=== PATIENT | female | born 1985 | race Caucasian/White ===

== ENCOUNTER 2020-05-23 18:20 | Emergency (ER) | payer OTHER ==
--- NOTE | 2020-05-23 20:10 | EDM.PDOC ---
ED HPI GENERAL MEDICAL PROBLEM - General Chief Complaint: Flank Pain Stated Complaint: LEFT FLANK PAIN Time Seen by Provider: 05/23/20 18:36 Source of Information: Reports: Patient History Limitations: Reports: No Limitations - History of Present Illness INITIAL COMMENTS - FREE TEXT/NARRATIVE: Patient is a 34-year-old female presenting to the emergency department with complaints of a 5-day history of left flank pain that occasionally radiates down to her groin area. She denies any dysuria or fever. She has no history of kidney stones. Denies any visible blood in her urine. She has not taken anything for pain and does not want to be given pain medications in the emergency department. Not injured her back in any way that she can remember. Treatments ASSESSMENT EXPERT: Reports: Other (see below) Other Treatments ASSESSMENT EXPERT: tylenol Left Flank Pain Score (Numeric/FACES): 7 - Related Data Allergies Allergy/AdvReac Type Severity Reaction Status Date / Time Penicillins Allergy Severe Swelling Verified 05/23/20 18:31 Home Meds: Home Meds . [No Known Home Meds] 05/23/20 [History] Past Medical History Musculoskeletal History: Reports: Fibromyalgia - Past Surgical History HEENT Surgical History: Reports: Tonsillectomy GI Surgical History: Reports: Cholecystectomy Female Surgical History: Reports: Hysterectomy Other Female Surgeries/Procedures: 1 ovary left Social & Family History - Tobacco Use Tobacco Use Status *Q: Current Every Day Tobacco User Years of Tobacco use: 15 Packs/Tins Daily: 0.5 - Caffeine Use Caffeine Use: Reports: Coffee - Recreational Drug Use Recreational Drug Use: No ED ROS GENERAL - Review of Systems Review Of Systems: See Below Constitutional: Reports: No Symptoms. Denies: Fever, Weakness, Fatigue HEENT: Reports: No Symptoms Respiratory: Reports: No Symptoms Cardiovascular: Reports: No Symptoms Endocrine: Reports: No Symptoms GI/Abdominal: Reports: No Symptoms : Reports: Flank Pain. Denies: Dysuria Musculoskeletal: Reports: Back Pain Skin: Reports: No Symptoms Neurological: Reports: No Symptoms Psychiatric: Reports: No Symptoms Hematologic/Lymphatic: Reports: No Symptoms Immunologic: Reports: No Symptoms ED EXAM,LOWER BACK PAIN/INJURY - Physical Exam Exam: See Below General Appearance: Alert, WD/WN, No Apparent Distress Respiratory/Chest: No Respiratory Distress, Lungs Clear, Normal Breath Sounds, No Accessory Muscle Use, Chest Non-Tender Cardiovascular: Normal Peripheral Pulses, Regular Rate, Rhythm, No Edema, No Gallop, No JVD, No Murmur, No Rub Back Exam: Normal Inspection, Full Range of Motion, Other (Bilateral CVA tenderness with the left being worse than the right) Neurological: Alert, Normal Mood/Affect, Normal Dorsiflexion, CN II-XII Intact, Normal Plantar Flexion, Normal Gait, Normal Reflexes, No Motor/Sensory Deficits, Oriented x 3 Psychiatric: Normal Affect, Normal Mood Skin Exam: Warm, Dry, Intact, Normal Color, No Rash Course - Vital Signs Last Recorded V/S: Last Vital Signs Temp 97.7 F 05/23/20 18:36 Pulse 72 05/23/20 18:36 Resp 20 05/23/20 18:36 BP 138/96 H 05/23/20 18:36 Pulse Ox 100 05/23/20 18:36 - Orders/Labs/Meds Orders: Active Orders 24 hr Category Date Time Status Abdomen Pelvis wo Cont [CT] Stat Exams 05/23/20 18:47 Taken Labs: Laboratory Tests 05/23/20 05/23/20 05/23/20 Range/Units 18:47 18:50 18:50 WBC 8.46 (3.98-10.04) K/mm3 RBC 4.30 (3.98-5.22) M/mm3 Hgb 14.2 (11.2-15.7) gm/dl Hct 41.4 (34.1-44.9) % MCV 96.3 H (79.4-94.8) fl MCH 33.0 H (25.6-32.2) pg MCHC 34.3 (32.2-35.5) g/dl RDW Std Deviation 42.3 (36.4-46.3) fL Plt Count 308 (182-369) K/mm3 MPV 9.6 (9.4-12.3) fl Neut % (Auto) 66.5 (34.0-71.1) % Lymph % (Auto) 27.1 (19.3-51.7) % [place] % (Auto) 5.4 (4.7-12.5) % Eos % (Auto) 0.7 (0.7-5.8) Baso % (Auto) 0.1 (0.1-1.2) % Neut # (Auto) 5.62 (1.56-6.13) K/mm3 Lymph # (Auto) 2.29 (1.18-3.74) K/mm3 [place] # (Auto) 0.46 H (0.24-0.36) K/mm3 Eos # (Auto) 0.06 (0.04-0.36) K/mm3 Baso # (Auto) 0.01 (0.01-0.08) K/mm3 Sodium 136 (136-145) mEq/L Potassium 3.6 (3.5-5.1) mEq/L Chloride 102 (98-107) mEq/L Carbon Dioxide 21 (21-32) mEq/L Anion Gap 16.6 H (5-15) BUN 9 (7-18) mg/dL Creatinine 0.7 (0.55-1.02) mg/dL Est Cr Clr Drug Dosing 95.94 mL/min Estimated GFR (MDRD) > 60 (>60) mL/min BUN/Creatinine Ratio 12.9 L (14-18) Glucose 92 (74-106) mg/dL Calcium 8.9 (8.5-10.1) mg/dL Total Bilirubin 0.4 (0.2-1.0) mg/dL AST 12 L (15-37) U/L ALT 26 (14-59) U/L Alkaline Phosphatase 85 (46-116) U/L C-Reactive Protein 0.6 (<1.0) mg/dL Total Protein 7.6 (6.4-8.2) g/dl Albumin 4.0 (3.4-5.0) g/dl Globulin 3.6 gm/dL Albumin/Globulin Ratio 1.1 (1-2) Urine Color Yellow (Yellow) Urine Appearance Clear (Clear) Urine pH 6.0 (5.0-8.0) Ur Specific [place] > or = 1.030 (1.005-1.030) Urine Protein Trace H (Negative) Urine Glucose (UA) Negative (Negative) Urine Ketones 1+ H (Negative) Urine Occult Blood Negative (Negative) Urine Nitrite Negative (Negative) Urine Bilirubin Negative (Negative) Urine Urobilinogen 1.0 (0.2-1.0) Ur Leukocyte Esterase Negative (Negative) Urine RBC 0-5 (0-5) /hpf Urine WBC 0-5 (0-5) /hpf Ur Squamous Epith Cells 0-5 (0-5) /hpf Urine Bacteria Not seen (FEW) /hpf Urine Mucus Few (FEW) /hpf - Re-Assessments/Exams Free Text/Narrative Re-Assessment/Exam: Patient is a 34-year-old female presenting to the emergency department with complaints of 5-day history of left-sided flank pain. Describes it as waxing and waning in nature. Occasion does radiate to the groin. On exam, she does have bilateral CVA tenderness, however left is worse than the right. She denies any urinary symptoms. I have ordered a CBC, CMP, CRP, urinalysis, and CT scan of the abdomen pelvis. 05/23/20 20:07 Patient's work-up was found to be overall unremarkable. Hematology was normal. Urinalysis showed no blood or infection. CT scan of the abdomen pelvis showed a nonspecific 3.7 cm left ovarian cyst with no surrounding inflammation. No free pelvic fluid. Previous hysterectomy. Normal appendix. Previous cholecystectomy. No renal calculi or hydronephrosis. No acute renal inflammatory changes. Discussed these results with patient. Her low back pain is likely is musculoskeletal in nature. She does not want any pain medications and denied the need for muscle relaxers. Recommend Tylenol and ibuprofen as well as heat to her low back. Discharge instructions as documented. Departure - Departure Time of Disposition: 20:08 Disposition: Home, Self-Care 01 Condition: Good Clinical Impression: Low back pain Qualifiers: Chronicity: acute Back pain laterality: bilateral Sciatica presence: without sciatica Qualified Code(s): M54.5 - Low back pain - Discharge Information *PRESCRIPTION DRUG MONITORING PROGRAM REVIEWED*: No *COPY OF PRESCRIPTION DRUG MONITORING REPORT IN PATIENT LUIS: No Instructions: Acute Back Pain, Adult Referrals: PCP,None [Primary Care Provider] - Additional Instructions: You were seen in the emergency department today for a 5-day history of left- sided back pain with some tenderness of the right side your back on examination as well. Work-up included blood work, urinalysis, and a CT scan. Results your blood work and urinalysis were negative. There was no blood or signs of infection in your urine. CT scan showed a 3.7 cm left ovarian cyst with no inflammatory changes. As we discussed, these likely do not cause pain until they rupture. Your CT scan was otherwise found to be normal. As discussed, the your back pain is likely musculoskeletal in nature. Recommend Tylenol and ibuprofen as needed for discomfort. Apply heat to the area will likely also be beneficial. If you experience any new or worsening symptoms, please not hesitate to return to the ER for reevaluation. Sepsis Event Note (ED) - Evaluation Sepsis Screening Result: No Definite Risk - Focused Exam Vital Signs: Vital Signs Temp Pulse Resp BP Pulse Ox 05/23/20 18:36 97.7 F 72 20 138/96 H 100 - My Orders Last 24 Hours: My Active Orders 05/23/20 18:47 Abdomen Pelvis wo Cont [CT] Stat - Assessment/Plan Last 24 Hours: My Active Orders 05/23/20 18:47 Abdomen Pelvis wo Cont [CT] Stat
--- NOTE | 2020-05-25 15:33 | CT ---
"PROCEDURE INFORMATION: Exam: CT Abdomen And Pelvis Without Contrast Exam date and time: 05/23/2020 6:44 PM Age: 34 years old Clinical indication: Abdominal pain; Flank; Left; Patient HX: Hysterectomy two yrs ago, PT complained of body aches/pain TECHNIQUE: Imaging protocol: Computed tomography of the abdomen and pelvis without contrast. COMPARISON: No relevant prior studies available. FINDINGS: Liver: Normal. No mass. Gallbladder and bile ducts: Previous cholecystectomy. Pancreas: Normal. No ductal dilation. Spleen: Normal. No splenomegaly. Adrenal glands: Normal. No mass. Kidneys and ureters: No hydronephrosis or renal calculi. Stomach and bowel: Unremarkable. No obstruction. No mucosal thickening. Appendix: A normal appendix is seen retrocecal in location. Intraperitoneal space: Unremarkable. No free air. No significant fluid collection. Vasculature: Unremarkable. No abdominal aortic aneurysm. Lymph nodes: Unremarkable. No enlarged lymph nodes. Urinary bladder: Unremarkable as visualized. Reproductive: Left ovarian 3.7 centimetres cyst. This is nonspecific in appearance. No surrounding inflammation. No calcifications of the cyst. Uterus is absent. Right adnexa is unremarkable. Bones/joints: Degenerative disc disease at L5-S1.. No acute fracture. Soft tissues: Unremarkable. IMPRESSION: 1. Nonspecific 3.7 cm left ovarian cyst. No surrounding inflammation. CRISTI HAYNES | Final Radiology Report CONFIDENTIALITY STATEMENT This report is intended only for use by the referring physician, and only in accordance with law. If you received this in error, call [phone]. Page 2 of 2 2. No free pelvic fluid. 3. Previous hysterectomy. 4. Normal appendix. 5. Previous cholecystectomy. 6. No renal calculi or hydronephrosis. No acute renal inflammatory changes. Thank you for allowing us to participate in the care of your patient. Dictated and Authenticated by: Kevin Ferraro MD 05/23/2020 8:28 PM Central Time ([place] & [place]) [facility]ITALHa[facility]"
== END 2020-05-23 20:14 | disposition home or self-care (01) ==
LOC: JD.ED 18:20
DX: M54.5 Low back pain (principal); F17.210 Nicotine dependence, cigarettes, uncomplicated; Z88.0 Allergy status to penicillin
CPT/HCPCS: 36415; 74176; 74176-26; 80053; 81001; 85025; 86140; 99284-25

== ENCOUNTER 2021-04-10 07:09 | Emergency (ER) | payer OTHER ==
[2021-04-10] MEDS ORDERED: Bupivacaine 0.5% 10 ML SDV INJECT ONE (08:21)
[2021-04-10] MEDS ORDERED: Triamcinolone Acetonide 40 MG/ML 1 ML SDV INJECT ONE (08:21)
--- NOTE | 2021-04-10 08:26 | EDM.PDOC ---
ED HPI GENERAL MEDICAL PROBLEM - General Chief Complaint: Skin Complaint Stated Complaint: L FOOT SKIN COMPLAINT Time Seen by Provider: 04/10/21 08:15 Source of Information: Reports: Patient History Limitations: Reports: No Limitations - History of Present Illness INITIAL COMMENTS - FREE TEXT/NARRATIVE: 35-year-old female presents to the ED with a painful lesion on the dorsal aspect of her left dorsal foot. She had previous resection of a ganglion cyst in this area in about 2009. 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 She states lately she been walking on the side of her foot and walking abnormally to the point that her left hip and SI joint are becoming painful. Pain is constant throbbing and worse in the evenings after she has been on her feet all day. Onset: Unknown/Unsure (Gradually getting worse over a number of months.) Duration: Chronic, Getting Worse Location: Reports: Lower Extremity, Left (Dorsal left midfoot) Quality: Reports: Ache, Throbbing Severity: Moderate Improves with: Reports: Rest Worsens with: Reports: Other Context: Denies: Activity (Worsens by the end of the day after she has been walking a lot.), Exercise, Lifting, Sick Contact, Trauma, Other Associated Symptoms: Reports: No Other Symptoms Treatments SEEDLING SORTER: Reports: NSAIDS (Motrin.) Left Foot Pain Score (Numeric/FACES): 7 - Related Data Allergies Allergy/AdvReac Type Severity Reaction Status Date / Time Penicillins Allergy Severe Swelling Verified 04/10/21 08:16 Home Meds: Home Meds . [No Known Home Meds] 05/23/20 [History] Past Medical History Musculoskeletal History: Reports: Fibromyalgia - Past Surgical History HEENT Surgical History: Reports: Tonsillectomy GI Surgical History: Reports: Cholecystectomy Female Surgical History: Reports: Hysterectomy Other Female Surgeries/Procedures: 1 ovary left Social & Family History - Caffeine Use Caffeine Use: Reports: Coffee - Living Situation & Occupation Living situation: Reports: Occupation: Employed ED ROS GENERAL - Review of Systems Review Of Systems: See Below Constitutional: Reports: No Symptoms HEENT: Reports: No Symptoms Respiratory: Reports: No Symptoms Cardiovascular: Reports: No Symptoms Endocrine: Reports: No Symptoms GI/Abdominal: Reports: No Symptoms : Reports: No Symptoms Musculoskeletal: Reports: Foot Pain (Left foot pain see history of present illness) Skin: Reports: Other (Swelling dorsal aspect left foot) Neurological: Reports: Other (Does have some neuralgia pain at the site of previous surgical excision dorsal aspect of her left foot) Psychiatric: Reports: No Symptoms Hematologic/Lymphatic: Reports: No Symptoms Immunologic: Reports: No Symptoms ED EXAM, SKIN/RASH Exam: See Below Exam Limited By: No Limitations General Appearance: Alert, WD/WN, No Apparent Distress, Other (Temperature is 36.1 heart rate 64 and sinus respiratory to 16 BP 141/85 O2 sats 100% room air) Extremities: Other (Examination was limited to the dorsal aspect of her left foot. Patient has a ganglion cyst approximately 1 cm in diameter over the second metatarsal and middle cuneiform bone. It is slightly mobile and mildly tender to touch. Evidence of previous surgery to the area with surgical scars x2.) Neurological: Alert, Oriented, CN II-XII Intact, Normal Cognition Psychiatric: Normal Affect, Normal Mood Skin: Warm, Dry, Intact, Normal Color, No Rash Location, Skin: Lower Extremity, Left (Ganglion cyst dorsal aspect of her left medial foot) ED SKIN PROCEDURES - Additional/Other Procedure(s) Other (Free Text) Procedure(s): Injection of ganglion cyst dorsal aspect right foot with 0.5% bupivacaine 0.5 mils and then instillation of 40 mg or 1 mill of Kenalog into ganglion cyst. Course - Vital Signs Last Recorded V/S: Last Vital Signs Temp 36.1 C 04/10/21 08:13 Pulse 64 04/10/21 08:13 Resp 16 04/10/21 08:13 BP 141/85 H 04/10/21 08:13 Pulse Ox 100 04/10/21 08:13 - Orders/Labs/Meds Meds: Medications Discontinued Medications Generic Name Dose Route Start Last Admin Trade Name Freq PRN Reason Stop Dose Admin Bupivacaine HCl 10 ml 04/10/21 08:21 04/10/21 09:34 Bupivacaine 0.5% 10 Ml Sdv INJECT 04/10/21 08:22 10 ml ONETIME ONE Administration Triamcinolone Acetonide 20 mg 04/10/21 08:21 04/10/21 09:34 Triamcinolone Acetonide 40 Mg/Ml 1 Ml Sdv INJECT 04/10/21 08:22 20 mg ONETIME ONE Administration - Radiology Interpretation Free Text/Narrative:: 35-year-old female presents to the ED with painful lesion dorsal aspect of her left foot. She has been told this is a ganglion cyst and actually had primary surgical excision carried out by an orthopedic surgeon in 2009. It subsequently has reoccurred. Currently it is on the medial aspect of her dorsal foot over the second metatarsal. Today the plan will be to inject it with bupivacaine and then instill 20 mg of Kenalog into the area. - Re-Assessments/Exams Free Text/Narrative Re-Assessment/Exam: 04/10/21 09:38 injected the ganglion cyst with 0.5 mils of bupivacaine anesthetic and then instilled 1 mill or 40 mg of Kenalog into the ganglion cyst. Patient tolerated the procedure well. It was covered with a Band-Aid to keep clean. Departure - Departure Time of Disposition: 09:35 Disposition: Home, Self-Care 01 Condition: Fair Clinical Impression: Ganglion cyst of left foot - Discharge Information *PRESCRIPTION DRUG MONITORING PROGRAM REVIEWED*: Not Applicable *COPY OF PRESCRIPTION DRUG MONITORING REPORT IN PATIENT LUIS: Not Applicable Instructions: Ganglion Cyst Referrals: PCP,None [Primary Care Provider] - Forms: ED Department Discharge Additional Instructions: Evaluation in the emergency room today in regards to a painful cystic lesion on the dorsal aspect of your left foot. As you know this is a ganglion cyst that was primarily resected in 2009 by orthopedic surgeon. Unfortunately it has reoccurred. This occurs approximately 15% of the time after surgery. Today the ganglion was injected with 0.5% bupivacaine anesthetic and then 40 mg of Kenalog was instilled into the ganglion cyst. Expect the area to be more tender and sore over the next 24 hours and then gradually improve over the next 72 hours and should gradually shrink over time. If not it could be reinjected with steroid in 3 months time. If you are considering surgery as a treatment plan suggest follow-up with Dr. Earnest Goodwin orthopedic surgeon [facility] [place]. Sepsis Event Note (ED) - Focused Exam Vital Signs: Vital Signs Temp Pulse Resp BP Pulse Ox 04/10/21 08:13 36.1 C 64 16 141/85 H 100
== END 2021-04-10 09:50 | disposition home or self-care (01) ==
LOC: JD.ED 07:09
DX: M67.472 Ganglion, left ankle and foot (principal); Z88.0 Allergy status to penicillin
CPT/HCPCS: 20612; 99282; J3301; J3490; 99283